=== PATIENT | female | born 1930 | race Caucasian/White ===

== ENCOUNTER 2018-03-06 04:48 | Observation (INO) | payer OTHER ==
[~2018-03-06] VITALS: Ht 165.1 cm; Wt 93.1 kg
[~2018-03-06 04:48] MED LIST: ACET325 PO; ANTACID168 MG PO; ASCO500 PO; CALCIT950 PO; CALCIUM 500 +1 EAC4 PO; CALCIUM 500 MG1 EACH; CALCIUM PO; CHOL10002 PO; DOCU100 PO; ENOX30I SC; FERR325 PO; GABA300 PO; GLUC500 PO; HYDR1TAB94 PO; Hair, Skin & N1 EACH PO; IRBE150; MECL25 PO; MELO7.5 PO; METR500 PO; METRIBP PO; MULVITMIND PO; Mobic15 MG PO; Norco 5-325 Ta1 EACH PO; ONDA4ODT MM; Percocet 5-3251 EACH PO; TELM20; TELM80 PO; TRAACE PO; TRAM50; TRAM50 PO; ULTRACET PO; VOLTAREN GEL; Voltaren100 GM TOP
[2018-03-06] MEDS ORDERED: METO50ER PO (05:15)
[2018-03-06 05:30] LABS: BASOPHILS ABSOLUTE AUTO 0.03 K/mm3 (0.00-0.23); BASOPHILS PERCENT AUTO 0 % (0-2); EOSINOPHILS ABSOLUTE AUTO 0.16 K/mm3 (0.00-0.68); EOSINOPHILS PERCENT AUTO 2 % (0-6); Hematocrit 41.7 % (33.0-51.0); Hemoglobin 13.7 g/dL (11.5-16.0); IMMATURE GRAN ABSOLUTE AUTO 0.05 K/mm3 (0.00-0.10); IMMATURE GRAN PERCENT AUTO 1 % (0-1); LYMPHOCYTES ABSOLUTE AUTO 1.34 K/mm3 (0.84-5.20); LYMPHOCYTES PERCENT AUTO 17 % (21-46); MONOCYTES ABSOLUTE AUTO 0.66 K/mm3 (0.16-1.47); MONOCYTES PERCENT AUTO 8 % (4-13); Mean Corpuscular HGB 32.2 pg (26.0-34.0); Mean Corpuscular HGB Conc 32.9 g/dL (31.5-36.5); Mean Corpuscular Volume 98 fL (80-100); Mean Platelet Volume 9.1 fL (9.1-12.4); NEUTROPHILS ABSOLUTE AUTO 5.71 K/mm3 (1.96-9.15); NEUTROPHILS PERCENT AUTO 72 % (41-73); Platelet Count 299 K/mm3 (150-400); RDW Coefficient Variation 13.2 % (11.7-14.2); Red Blood Cell Count 4.26 M/mm3 (3.80-5.20); White Blood Cell Count 7.95 K/mm3 (4.00-11.30)
[2018-03-06 06:05] LABS: Albumin, Blood 3.4 g/dL (3.4-5.0); Albumin/Globulin Ratio 0.9 (0.8-1.8); Bilirubin, Total 0.4 mg/dL (0.1-1.0); Bun/Creatinine Ratio 29.4 (12.0-20.0); Calcium, Blood 8.9 mg/dL (8.5-10.1); Creatinine, Blood 1.02 mg/dL (0.40-1.00); Globulin, Blood 3.6 g/dL (2.2-4.0); Potassium, Blood 4.2 mmol/L (3.5-5.5)
[2018-03-06 08:56] LABS: Hematocrit 41.2 % (33.0-51.0); Hemoglobin 13.3 g/dL (11.5-16.0)
--- NOTE | 2018-03-06 14:27 | NUR ---
ER ADMIT- PT ARRIVED TO ROOM 312 VIA GURNEY FROM ED AT 1225. PT A/OX4, INDEP INTO BED. PT REPORTS MILD PAIN TO BLADDER FROM HOLDING SO LONG IN ED. PT DENIES ANY OTHER COMPLAINTS. LS CLEAR, ON RA. HRR. MILD TENDERNESS TO ABD, PT UP TO BATHROOM TO VOID AND DENIES ANY NOTED BLEEDING AT THIS TIME. PROTONIX GTT STARTED. PT ORIENTED TO ROOM AND CALL SYSTEM, CALL LIGHT IN REACH.
[2018-03-06] MEDS ORDERED: Nystatin15 GM TOP (14:39)
[2018-03-06 14:43] LABS: Hemoglobin 13.2 g/dL (11.5-16.0)
--- NOTE | 2018-03-06 17:03 | NUR ---
SHIFT SUMMARY- NEW ER ADMIT. PT A/OX4, SBA TO BATHROOM WITH FWW. LS CLEAR, ON RA. HRR. NO RECTAL BLEEDING SINCE ARRIVAL TO FLOOR, PT REPORTS MILD TENDERNESS TO ABD. PROTONIX GTT RUNNING. GI CONSULT. PT TOLERATING CLEAR LIQUID DIET. NM GI BLOOD LOSS SCAN NEGATIVE. NO OTHER ACUTE CHANGES SINCE ARRIVAL TO FLOOR.
[2018-03-06 20:40] LABS: Hemoglobin 12.5 g/dL (11.5-16.0)
[2018-03-07 02:38] LABS: Hematocrit 36.9 % (33.0-51.0); Hemoglobin 12.2 g/dL (11.5-16.0)
--- NOTE | 2018-03-07 06:49 | NUR ---
SHIFT SUMMARY PT IS A 87 Y/O FEMALE, ADMITTED FOR RECTAL BLEEDING. SHE IS A&O X 4, AND A SBA IN THE ROOM. THE PT DENIED ANY BLOOD WITH BOWEL MOVEMENTS DURING THE NIGHT, BUT DID REPORT SOME SMEARS ON BLOOD ON THE TOILET PAPER AFTER WIPING. SHE COMPLAINED OF SOME MILD ABD AND BACK PAIN, FOR WHICH SHE WAS MEDICATED ONCE WITH PRN TYLENOL. SHE DENIED ANY COMPLAINTS OF NAUSEA OR SOB. VITAL SIGNS STABLE. NO OTHER ACUTE CHANGES IN PT CONDITON NOTED. WILL CONTINUE TO MONITOR AND TREAT PER EMAR UNTIL HAND OFF TO DAY SHIFT.
[2018-03-07 08:42] LABS: Hemoglobin 12.8 g/dL (11.5-16.0)
[2018-03-07] MEDS ORDERED: Colace100 MG PO (10:58)
[2018-03-07] MEDS ORDERED: Pantoprazole So40 MG PO (10:59)
--- NOTE | 2018-03-07 11:28 | NUR ---
SHIFT SUMMARY/DC PT HAS HAD NO ACUTE CHANGES THIS SHIFT, NO COMPLAINTS OF ANY KIND. REVIEWED DC INSTRUCTIONS W/PT AND DAUGHTER, BOTH VERBALIZED UNDERSTANDING. PT WAS TRANSPORTED VIA W/C TO [facility] IN PRIVATE VEHICLE @ 1780.
== END 2018-03-07 11:31 | disposition home or self-care (01) ==
LOC: ER 04:48 → MEDS 04:49 → ER 06:34 → MEDS 06:34
PROVIDERS: Emergency Medicine; Internal Medicine; ADMIT Internal Medicine
DX: K64.9 Unspecified hemorrhoids (principal); K57.30 Diverticulosis of large intestine without perforation or abscess without bleeding; M54.16 Radiculopathy, lumbar region; M19.90 Unspecified osteoarthritis, unspecified site; D50.0 Iron deficiency anemia secondary to blood loss (chronic); N28.9 Disorder of kidney and ureter, unspecified; I12.9 Hypertensive chronic kidney disease with stage 1 through stage 4 chronic kidney disease, or unspecified chronic kidney disease; N18.3 Chronic kidney disease, stage 3 (moderate); Z79.899 Other long term (current) drug therapy; Z88.0 Allergy status to penicillin
CPT/HCPCS: 36415; 78278; 80053; 85014; 85018; 85025; 86850; 86900; 86901; 96365; 96366; 99285-25; A9560; C9113; G0378; J7120

== ENCOUNTER 2018-09-29 09:08 | Day surgery (SDC) | payer OTHER ==
[~2018-09-29] VITALS: Ht 165.1 cm; Wt 91.3 kg
[~2018-09-29 09:08] MED LIST changes: +AMLO5 PO; +Colace100 MG PO; +METO50ER PO; +Nystatin15 GM TOP; +PYRI100 PO; +Pantoprazole So40 MG PO
--- NOTE | 2018-09-29 09:50 | NUR ---
History, Chart, Medications and Allergies reviewed before start of procedure. Lungs clear T/O to Auscultation. Patient confirms NPO status and agrees with scheduled surgery. Pre-Op teaching done. Pt verbalizes understanding. Patient reports completing Chlorhexadine shower X2 prior to admission to hospital.
--- NOTE | 2018-09-29 19:35 | NUR ---
SHIFT SUMMARY PT WAS VERY NAUSEATED AND THROWING UP POST OP; ALTHOUGH PHENERGAN MADE HER SLEEPY IT DID RELIEVE HER N/V. SPINAL DID NOT FULLY WEAR OFF UNTIL 183. PT VOIDING EASILY. TAKING SMALL BITES OF SALTINES AND JELLO AT THIS TIME. DENIES PAIN.
[2018-09-30 04:12] LABS: BASOPHILS ABSOLUTE AUTO 0.01 K/mm3 (0.00-0.23); BASOPHILS PERCENT AUTO 0 % (0-2); EOSINOPHILS PERCENT AUTO 0 % (0-6); Hematocrit 38.6 % (33.0-51.0); Hemoglobin 12.8 g/dL (11.5-16.0); IMMATURE GRAN ABSOLUTE AUTO 0.05 K/mm3 (0.00-0.10); IMMATURE GRAN PERCENT AUTO 0 % (0-1); LYMPHOCYTES ABSOLUTE AUTO 0.78 K/mm3 (0.84-5.20); LYMPHOCYTES PERCENT AUTO 6 % (21-46); MONOCYTES PERCENT AUTO 7 % (4-13); Mean Corpuscular HGB Conc 33.2 g/dL (31.5-36.5); Mean Corpuscular Volume 97 fL (80-100); Mean Platelet Volume 9.5 fL (9.1-12.4); NEUTROPHILS ABSOLUTE AUTO 11.88 K/mm3 (1.96-9.15); NEUTROPHILS PERCENT AUTO 87 % (41-73); Platelet Count 237 K/mm3 (150-400); RDW Standard Deviation 46.2 fL (35.1-46.3); White Blood Cell Count 13.62 K/mm3 (4.00-11.30)
[2018-09-30 04:32] LABS: Anion Gap 6 mmol/L (6-16); Blood Urea Nitrogen 16 mg/dL (8-24); Bun/Creatinine Ratio 17.1 (12.0-20.0); CO2, Blood 27 mmol/L (21-32); Calcium, Blood 8.5 mg/dL (8.5-10.1); Chloride, Blood 106 mmol/L (98-108); Creatinine, Blood 0.93 mg/dL (0.40-1.00); Glomerular Filtration Rate >60 (60-); Glucose, Blood 123 mg/dL (70-99); Magnesium, Blood 1.8 mg/dL (1.6-2.4); Sodium, Blood 139 mmol/L (136-145)
--- NOTE | 2018-09-30 07:18 | NUR ---
POD 1 S/P R TKA. PT VSS T/O NIGHT. DRESSING CDI. PT REP PAIN MINIMAL, MGD W/SCHEDULED TYLENOL W/REP RELIEF. PT ERNESTO PO W/NO C/O N/V; IV SL PER ORDERS. PT CONT HAVE URINARY RETENTION. PT VOIDING 200-400ML EACH VOID, PVR >450, I/O CATH DONE THIS AM. PT UP OOB W/FWW+1 ASSIST, AMB IN ROOM, ERNESTO WELL. PT USING CALL LIGHT FOR ASSISTANCE, REP GIVEN TO DAY RN.
--- NOTE | 2018-09-30 11:04 | NUR ---
Upon receiving an admit referral requesting a spiritual care visit, I entered patient's room. Patient's daughter is bedside. Patient states that she has no sikh beliefs and that she finds her strength from mother nature and from her family. Patient also shares about the fact that she has had the same surgery on the other knee not long ago and so patient knows what it will take to get through this one. Patient is not looking forward to the long and difficult process of recovery. I normalize patient's experience, encouraged self-care and praised family for their active role in the recovery.
[2018-09-30] MEDS ORDERED: ASPI325EC PO (14:42)
[2018-09-30] MEDS ORDERED: OXYC5 PO (14:42)
--- NOTE | 2018-09-30 15:30 | NUR ---
DISCHARGE CLEARED THERAPY, EATING, DRINKING, VOIDING. DISCUSSED VOIDING CONCERNS WITH MD. PAIN WELL MANAGED, GAIT BELT SENT HOME. DRSMONIQUE GIVEN. PT HAS FAMILY SUPPORT AT HOME. ESCORTED OUT VIA W/C.
== END 2018-09-30 15:31 | disposition home or self-care (01) ==
LOC: ORSCMMR 09:08 → ORD 10:45 → SURS 14:27 → ORSCMMR 09-30 15:31
PROVIDERS: Orthopaedic Surgery
PROC: 8E0YXBZ Computer Assisted Procedure of Lower Extremity (ICD-10-PCS; principal; 2018-09-29 10:45)
PROC: 0SRC0J9 Replacement of Right Knee Joint with Synthetic Substitute, Cemented, Open Approach (ICD-10-PCS; principal; 2018-09-29 10:45)
DX: M17.11 Unilateral primary osteoarthritis, right knee (principal); I10 Essential (primary) hypertension; Z79.899 Other long term (current) drug therapy; E66.9 Obesity, unspecified; Z68.33 Body mass index [BMI] 33.0-33.9, adult
CPT/HCPCS: 36415; 73560-RT; 80048; 83735; 85025; 88300; 97110; 97116; 97162; 97530; C1713; C1776; J0171; J0690; J0735; J1100; J1885; J2370; J2405; J2550; J2704; J2795; J3010; J3370; J7120

== ENCOUNTER 2022-04-22 15:14 | Emergency (ER) | payer OTHER ==
[~2022-04-22] VITALS: Ht 162.6 cm; Wt 90.7 kg
[~2022-04-22 15:14] MED LIST changes: +ASPI325EC PO; +OXYC5 PO
[2022-04-22 16:17] LABS: BASOPHILS ABSOLUTE AUTO 0.06 K/mm3 (0.00-0.23); BASOPHILS PERCENT AUTO 1 % (0-2); EOSINOPHILS ABSOLUTE AUTO 0.13 K/mm3 (0.00-0.68); EOSINOPHILS PERCENT AUTO 2 % (0-6); Hematocrit 41.4 % (33.0-51.0); Hemoglobin 14.1 g/dL (11.5-16.0); IMMATURE GRAN ABSOLUTE AUTO 0.02 K/mm3 (0.00-0.10); IMMATURE GRAN PERCENT AUTO 0 % (0-1); LYMPHOCYTES ABSOLUTE AUTO 1.21 K/mm3 (0.84-5.20); LYMPHOCYTES PERCENT AUTO 15 % (21-46); MONOCYTES ABSOLUTE AUTO 0.69 K/mm3 (0.16-1.47); MONOCYTES PERCENT AUTO 9 % (4-13); Mean Corpuscular HGB 31.2 pg (26.0-34.0); Mean Corpuscular HGB Conc 34.1 g/dL (31.5-36.5); Mean Corpuscular Volume 92 fL (80-100); Mean Platelet Volume 9.3 fL (9.1-12.4); NEUTROPHILS PERCENT AUTO 74 % (41-73); Platelet Count 304 K/mm3 (150-400); RDW Coefficient Variation 13.5 % (11.7-14.2); RDW Standard Deviation 45.8 fL (35.1-46.3); Red Blood Cell Count 4.52 M/mm3 (3.80-5.20); White Blood Cell Count 8.11 K/mm3 (4.00-11.30)
[2022-04-22 16:33] LABS: Albumin, Blood 3.5 g/dL (3.4-5.0); Bilirubin, Total 0.6 mg/dL (0.1-1.0); Bun/Creatinine Ratio 27.4 (12.0-20.0); Calcium, Blood 9.5 mg/dL (8.5-10.1); Creatinine, Blood 0.8 mg/dL (0.40-1.00); Globulin, Blood 3.5 g/dL (2.2-4.0); Potassium, Blood 4.1 mmol/L (3.5-5.5)
[2022-04-22 18:49] LABS: Magnesium, Blood 2.4 mg/dL (1.6-2.4)
[2022-04-22 18:51] LABS: Thyroid Stimulating Hormone 3.56 uIU/mL (0.360-4.800)
[2022-04-22 20:22] LABS: Influenza A, PCR NEGATIVE (NEGATIVE); Influenza B, PCR NEGATIVE (NEGATIVE); Resp Syncytial Virus, PCR NEGATIVE (NEGATIVE); SARS-Cov-2 (COVID-19) PCR, MMC NEGATIVE (NEGATIVE)
== END 2022-04-22 21:30 | disposition home or self-care (01) ==
LOC: ER 15:14
PROVIDERS: Student in an Organized Health Care Education/Training Program
DX: R53.1 Weakness (principal); R06.02 Shortness of breath; I10 Essential (primary) hypertension; Z79.899 Other long term (current) drug therapy; Z79.82 Long term (current) use of aspirin; Z88.0 Allergy status to penicillin; Z96.653 Presence of artificial knee joint, bilateral; Z20.822 Contact with and (suspected) exposure to COVID-19
CPT/HCPCS: 0241U; 36415; 71046; 80053; 83735; 83880; 84443; 84484; 85025; 93005; 93010; 99285-25